=== PATIENT | male | born 2000 | race Two or more races ===

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

== ENCOUNTER 2021-10-01 03:46 | Emergency (ER) | payer MEDICAID ==
[~2021-10-01] VITALS: Ht 180.3 cm; Wt 93.0 kg
[2021-10-01] MEDS ORDERED: IBUP800T27 PO (07:50)
[2021-10-01 07:53] VITALS: BP 151/81
[2021-10-01] MEDS ORDERED: KETOROLAC TROMETH 60MG/2ML VIAL IM ONE (08:00)
== END 2021-10-01 09:31 | disposition home or self-care (01) ==
LOC: ER 03:46
DX: S50.02XA Contusion of left elbow, initial encounter (principal); J45.909 Unspecified asthma, uncomplicated; Z79.1 Long term (current) use of non-steroidal anti-inflammatories (NSAID); W10.9XXA Fall (on) (from) unspecified stairs and steps, initial encounter; Y93.89 Activity, other specified; Y92.89 Other specified places as the place of occurrence of the external cause; Y99.8 Other external cause status
CPT/HCPCS: 73080; 96372; 99283; J1885